=== PATIENT | male | born 1955 | race Caucasian/White ===

== ENCOUNTER 2016-09-24 07:11 | Day surgery (SDC) | payer BC, OTHER ==
[2016-09-19 15:40] VITALS: BMI 25.8
[~2016-09-24 07:11] MED LIST: LACTATED RINGERS 1,000 ML IV SCH
[2016-09-24 07:24] VITALS: TEMP 97
[2016-09-24] MEDS ORDERED: PROPOFOL 10 MG/ML 20 ML VIAL IV ONE (07:41)
[2016-09-24] MEDS ORDERED: LIDOCAINE 1% INJ 10MG/ML (20 ML MDV) ONE (07:41)
--- NOTE | 2016-09-24 07:50 | P.GSHP ---
History of Present Illness H&P Date: 09/24/16 Chief Complaint: GERD, history of colon polyps Patient her today. Her lower endoscopy. Last colonoscopy was 3-5 years ago. He had polyps at that time. An upper endoscopy done about 2 years ago. A hiatal hernia was seen at time. Reflux symptoms are improved at this time. He does take frequent doses of UTIs. No bowel related complaints at this time. Past Medical History Past Medical History: GERD/Reflux, Hyperlipidemia, Rheumatoid Arthritis (RA), Skin Disorder Additional Past Medical History / Comment(s): intermittent sore throat and hoarsenes,hx colon polyps,acne History of Any Multi-Drug Resistant Organisms: None Reported Past Surgical History: Orthopedic Surgery, Tonsillectomy Additional Past Surgical History / Comment(s): arthroscopic lt knee,juliano shoulder ,lt cataract Past Anesthesia/Blood Transfusion Reactions: Postoperative Nausea & Vomiting ( PONV) Additional Past Anesthesia/Blood Transfusion Reaction / Comment(s): no hx blood transfusion Smoking Status: Former smoker Past Alcohol Use History: Daily Additional Past Alcohol Use History / Comment(s): quit smoking , smoked approx 15yrs <1ppd,drinks 1 drink daily before dinner Past Drug Use History: None Reported - Past Family History Mother Family Medical History: Cancer Father Family Medical History: Cancer Medications and Allergies Home Medications Medication Instructions Recorded Confirmed Type Aspirin 81 mg PO DAILY 04/02/15 09/24/16 History Cholecalciferol [Vitamin D3] 1,000 unit PO DAILY@1200 04/02/15 09/24/16 History Gluc/Adeel-MSM#1/C/[place]/Rajan/Bor 1 each PO 1200 04/02/15 09/24/16 History [Glucosamine-Chondroitin Tablet] Ibuprofen [Motrin] 400 mg PO BID 04/02/15 09/24/16 History Multivitamins, Thera [Theragran] 1 each PO DAILY@1200 04/02/15 09/24/16 History Omeprazole [PriLOSEC] 20 mg PO AC-SUPPER PRN 04/02/15 09/24/16 History Ubidecarenone [Co Q-10] 200 mg PO DAILY 04/02/15 09/24/16 History Ascorbic Acid [Vitamin C] 1,000 mg PO DAILY 09/19/16 09/24/16 History Atorvastatin [Lipitor] 20 mg PO DAILY 09/19/16 09/24/16 History Allergies Allergy/AdvReac Type Severity Reaction Status Date / Time No Known Allergies Allergy Verified 09/19/16 14:21 Surgical - Exam Vital Signs Temp Pulse Resp BP Pulse Ox 97.0 F L 87 20 150/84 97 09/24/16 07:22 09/24/16 07:22 09/24/16 07:22 09/24/16 07:22 09/24/16 07:22 Physical exam: General: Well-developed, well-nourished HEENT: Normocephalic, sclerae nonicteric Abdomen: Nontender, nondistended Extremities: No edema Neuro: Alert and oriented Assessment and Plan (1) GERD (gastroesophageal reflux disease) Narrative/Plan: Proceed with upper and lower endoscopy at this time. Risks were reviewed. Status: Acute
--- NOTE | 2016-09-24 08:15 | P.PCN ---
Date of Procedure: 09/24/16 Procedure(s) Performed: PREOPERATIVE DIAGNOSIS: GERD, screening with history of colon polyps POSTOPERATIVE DIAGNOSIS: Duodenitis, gastritis, hiatal hernia, mild distal esophagitis, ascending colon polyp, diverticulosis PROCEDURE: 1. EGD with biopsy 2. Colonoscopy with snare polypectomy ANESTH[place]: [facility] [place] SURGEON: Juan Dodson M.D. SPECIMENS: Duodenum, antrum, ascending colon polyp ENDOSCOPIC PROCEDURE: The patient was on the endoscopy table in the left decubitus position. The Olympus gastroscope was inserted into the oropharynx and passed under direct visualization to the region of the third portion of the duodenum. From that point the scope was slowly withdrawn inspecting all surfaces carefully. Mild duodenitis was noted in the first portion of duodenum. Biopsy took place. The pylorus was widely patent. The stomach was carefully inspected. There was mild gastritis present. A biopsy of the antrum took place to rule out H. pylori. Retroflexion revealed a small the medium sized sliding hiatal hernia. The GE junction was present 2 cm above the diaphragmatic hiatus there was a single small linear erosion present in the distal esophagus that was improved from previous. There were no neoplastic inflammatory or polypoid lesions throughout the visualized esophagus. The patient was kept on the endoscopy table in the left decubitus position. The Olympus colonoscope was inserted into the anus and passed under direct visualization to the base of the cecum. The appendiceal orifice was visualized. From that point the scope was slowly withdrawn inspecting all surfaces carefully. There were no neoplastic inflammatory or polypoid lesions throughout the cecum. In the mid ascending colon a small polyp was identified and removed with snare with cautery technique. The remainder of the ascending, transverse, descending, sigmoid and rectum appeared normal. There was moderate diverticulosis noted in the left colon primarily. Digital rectal examination was normal. The patient was taken to the recovery room in stable condition per anesthesia guidelines. RECOMMENDATIONS: Await biopsy results. Continue antiacid therapy. Anticipate follow-up EGD and colonoscopy 5 years.
[2016-09-24 08:20] VITALS: RESP 16
[2016-09-24 08:33] VITALS: BP 150/78; PULSE 72
== END 2016-09-24 09:13 | disposition home or self-care (01) ==
LOC: ORWHC2ENDO 07:11
PROVIDERS: ATTEND Surgery
DX: Z12.11 Encounter for screening for malignant neoplasm of colon (principal); D12.2 Benign neoplasm of ascending colon; K57.30 Diverticulosis of large intestine without perforation or abscess without bleeding; K21.0 Gastro-esophageal reflux disease with esophagitis; K29.50 Unspecified chronic gastritis without bleeding; K29.80 Duodenitis without bleeding; K44.9 Diaphragmatic hernia without obstruction or gangrene; E78.5 Hyperlipidemia, unspecified; M06.9 Rheumatoid arthritis, unspecified; Z86.010 Personal history of colon polyps; Z79.82 Long term (current) use of aspirin; Z79.1 Long term (current) use of non-steroidal anti-inflammatories (NSAID); Z79.899 Other long term (current) drug therapy; Z87.891 Personal history of nicotine dependence
CPT/HCPCS: 88305; 88342; 45385; 43239; J2001; J2704